=== PATIENT | female | born 1965 | race Two or more races ===

== ENCOUNTER 2023-09-11 04:31 | Emergency (ER) | payer OTHER ==
[~2023-09-11] VITALS: Ht 162.6 cm; Wt 58.1 kg
[2023-09-11] MEDS ORDERED: ATENOLOL25 MG (04:50)
[2023-09-11] MEDS ORDERED: MOUNJARO2.5 MG/0.5 (04:51)
[2023-09-11] MEDS ORDERED: LEVOTHYROXINE25 MCG (04:51)
[2023-09-11] MEDS ORDERED: METAXALONE800 MG PO (05:32)
[2023-09-11] MEDS ORDERED: DICLOFENAC POTA50 MG PO (05:32)
== END 2023-09-11 05:37 | disposition home or self-care (01) ==
LOC: ER 04:31
DX: M62.838 Other muscle spasm (principal); I10 Essential (primary) hypertension; E03.9 Hypothyroidism, unspecified
CPT/HCPCS: 96372; 99283; J1885; J2360